=== PATIENT | female | born 1940 | race Caucasian/White ===

== ENCOUNTER → 2016-05-22 | Outpatient (REF) | payer MEDICARE, MEDICAID ==
[2016-05-22 10:39] LABS: ANION GAP 15.6 MEQ/L (3-15)
== END ==
LOC: LAB 09:53
PROVIDERS: ATTEND Nurse Practitioner Family
DX: I10 Essential (primary) hypertension (principal)
CPT/HCPCS: 80048

== ENCOUNTER → 2016-07-20 | Outpatient (REF) | payer MEDICARE, MEDICAID ==
[2016-07-20 11:19] LABS: ANION GAP 13.8 MEQ/L (3-15)
== END ==
LOC: LAB 10:31
PROVIDERS: ATTEND Nurse Practitioner Family
DX: R73.03 Prediabetes (principal); R60.9 Edema, unspecified; R73.9 Hyperglycemia, unspecified
CPT/HCPCS: 80048; 83036

== ENCOUNTER → 2016-08-26 | Outpatient (CLI) | payer MEDICARE, MEDICAID ==
[~2016-08-26] MED LIST: ALBU8.5H2 IH; AMIO200T2 PO; ASPI-586 PO; ATOR40TA59 PO; AZIT250T5 PO; CEFD300C PO; CETI10TA20 PO; CHLO25TA2 PO; DOXY100C2 PO; DUONEB 0.5 MG-33 ML IH; FLUT16SP NSEACH; FRSM20T PO; GFN600TCR PO; LOSA100T8 PO; LVT.15T PO; METO25TA60 PO; METR59LO2 TP; MONT10TA21 PO; MTP50T PO; NTR.4SL SL; OMG1KC PO; PANT40TA3 PO; PRAV40TA2 PO; PRCD5U PO; PRD20T PO; VENL75TA6 PO; WARF5TAB6 PO; WARF7.5T PO; WRF5T PO
== END ==
LOC: LAB 08:08
PROVIDERS: ATTEND Internal Medicine Sleep Medicine
DX: D83.9 Common variable immunodeficiency, unspecified (principal)
CPT/HCPCS: 82784

== ENCOUNTER → 2016-09-23 | Outpatient (REF) | payer MEDICARE, MEDICAID ==
[2016-09-23 15:13] LABS: ANION GAP 14.9 MEQ/L (3-15)
== END ==
LOC: LAB 14:21
PROVIDERS: ATTEND Nurse Practitioner Family
DX: E03.4 Atrophy of thyroid (acquired) (principal); I48.0 Paroxysmal atrial fibrillation
CPT/HCPCS: 80048; 84443

== ENCOUNTER → 2016-09-29 | Outpatient (REF) | payer MEDICARE, MEDICAID | LOC: LAB 10:57 | PROVIDERS: ATTEND Family Medicine | DX: I48.0 Paroxysmal atrial fibrillation (principal) | CPT/HCPCS: 80162 ==